=== PATIENT | female | born 1940 | race Caucasian/White ===

== ENCOUNTER 2018-03-12 06:37 | Day surgery (SDC) | payer OTHER | END 2018-03-12 13:35 | disposition home or self-care (01) | LOC: AMB-ENDOS 06:37 | DX: D12.4 Benign neoplasm of descending colon (principal); K64.1 Second degree hemorrhoids ==

== ENCOUNTER 2021-05-24 09:07 | Outpatient (CLI) | payer OTHER | END 2021-05-24 09:14 | disposition home or self-care (01) | LOC: SONOGRAMA 09:07 → MAMO-SONO 09:45 | PROVIDERS: ATTEND Obstetrics & Gynecology Gynecology | DX: N84.0 Polyp of corpus uteri (principal); N60.11 Diffuse cystic mastopathy of right breast; N60.12 Diffuse cystic mastopathy of left breast; R92.0 Mammographic microcalcification found on diagnostic imaging of breast; Z80.3 Family history of malignant neoplasm of breast; D25.1 Intramural leiomyoma of uterus; E55.9 Vitamin D deficiency, unspecified ==